=== PATIENT | female | born 1940 | race Caucasian/White ===

== ENCOUNTER 2019-02-01 02:50 | Emergency (ER) | payer MEDICARE ==
[~2019-02-01] VITALS: Ht 157.5 cm; Wt 80.3 kg
--- NOTE | 2019-02-01 03:03 | NUR ---
[facility] FROM [facility] TO ER BED 12. AAOX3. NO RESP DISTRESS NOTED. BREATHING EVEN AND UNLABORED. C/O L FOREHEAD PAIN W/ HEMATOMA S/P FALL. PT REPORTS, THAT SHE TRIPPED AND FELL USING HER WALKER WHILE GOING TO THE BATHROOM AND HIT HER HED. PT DENIES PASSING OUT OR FEELING OF PASSING OUT PRIOR TO FALL. PT NOTED WITH L FOREHEAD HEMATOMA. PT IS ALSO NOTED WIHT L EYE BLINDNESS D/T A SAME FALL THAT HAPPENED IN THE LAST MONTH WITH CAUSED TO LOOSE HER VISION ON THE LEFT EYE. PT WAS GIVEN PACK. MD AT BEDSIDE FOR EVAL. AWAITING ORDERS
--- NOTE | 2019-02-01 03:12 | NUR ---
PT TO CT ON NIKI
[2019-02-01 03:45] LABS: BASOPHILS % (AUTO) 0.7 % (0.0-2.0); EOSINOPHILS % (AUTO) 3.4 % (0.0-6.0); HEMATOCRIT 35 % (33-45); HEMOGLOBIN 11.5 g/dL (11.5-14.8); LYMPHOCYTES # (AUTO) 1.5 /CMM (0.8-4.8); MEAN CORPUSCULAR HGB CONC 33 g/dl (31.0-36.0); MEAN CORPUSCULAR VOLUME 98 fL (82-100); MONOCYTES # (AUTO) 0.6 /CMM (0.1-1.30); NEUTROPHILS # (AUTO) 3.4 /CMM (1.8-8.9); NEUTROPHILS % (AUTO) 58.9 % (43.0-81.0); PLATELET COUNT (AUTO) 207 /CMM (150-450); RED BLOOD CELL COUNT(AUTO) 3.57 MIL/uL (4.0-5.2); WHITE BLOOD COUNT (AUTO) 5.7 K/uL (4.3-11.0)
[2019-02-01 03:46] LABS: CALCIUM, SERUM 8.9 mg/dL (8.5-10.1); POTASSIUM 3.8 mmol/L (3.5-5.1)
--- NOTE | 2019-02-01 04:13 | NUR ---
DAUGHTER AND SON -IN-LAW AT BEDSIDE
[2019-02-01] MEDS ORDERED: LIDOCAINE 1% INJ 50 ML MDV IJ ONE (04:18)
--- NOTE | 2019-02-01 04:32 | NUR ---
DR. LINDA AT BEDSIDE FOR LACERATION SUTURING.
[2019-02-01] MEDS ORDERED: ACETAMINOPHEN 325 MG TABLET ONE (05:11)
--- NOTE | 2019-02-01 05:18 | NUR ---
VERBAL ORDER FROM DR. LINDA FOR TYLENOL 650MG PO, ORDER RECEIVED. MED GIVEN TO PATIENT
[2019-02-01] MEDS ORDERED: ACETAMINOPHEN 325 MG TABLET PO ONE (05:30)
--- NOTE | 2019-02-01 06:01 | NUR ---
CALLED [facility] FOR REPORT.
--- NOTE | 2019-02-01 07:27 | NUR ---
Jm at bedside, report given to Krunal LOVE. Ready for transfer.
[2019-02-01 07:30] VITALS: BP 133/78
== END 2019-02-01 07:33 | disposition home or self-care (01) ==
LOC: ER 02:52
DX: S61.213A Laceration without foreign body of left middle finger without damage to nail, initial encounter (principal); S00.83XA Contusion of other part of head, initial encounter; R51 Headache; F03.90 Unspecified dementia, unspecified severity, without behavioral disturbance, psychotic disturbance, mood disturbance, and anxiety; F32.9 Major depressive disorder, single episode, unspecified; J45.909 Unspecified asthma, uncomplicated; Z85.038 Personal history of other malignant neoplasm of large intestine; Z85.3 Personal history of malignant neoplasm of breast; Z88.0 Allergy status to penicillin; Z88.2 Allergy status to sulfonamides; Z88.6 Allergy status to analgesic agent; W18.39XA Other fall on same level, initial encounter; Y93.89 Activity, other specified; Y92.89 Other specified places as the place of occurrence of the external cause; Y99.8 Other external cause status
CPT/HCPCS: 12001; 36415; 70450; 72125; 80048; 85025; 93005; 99284; A6403; J3490